=== PATIENT | male | born 1990 | race Caucasian/White ===

== ENCOUNTER 2018-10-29 10:40 | Emergency (ER) | END 2018-10-29 11:06 | disposition home or self-care (01) | DX: S61.304A Unspecified open wound of right ring finger with damage to nail, initial encounter (principal); R01.1 Cardiac murmur, unspecified; X58.XXXA Exposure to other specified factors, initial encounter; Y93.89 Activity, other specified; Y92.89 Other specified places as the place of occurrence of the external cause; Y99.8 Other external cause status ==